=== PATIENT | female | born 1955 | race Caucasian/White ===

== ENCOUNTER 2018-05-13 15:08 | Outpatient (CLI) | payer BC ==
--- NOTE | 2018-05-13 15:45 | MMO ---
Bilateral MAMMO Bilat Screen [facility]. CLINICAL HISTORY: Patient is 62 years old and is seen for screening. The patient has no family history of breast cancer. The patient has no personal history of cancer. VIEWS: The views performed were: bilateral craniocaudal with tomosynthesis and bilateral mediolateral oblique with tomosynthesis. FILMS COMPARED: The present examination has been compared to prior imaging studies performed at [facility] on 06/20/1999, 06/21/2003, 02/20/2011, 04/08/2013 and 04/15/2014. MAMMOGRAM FINDINGS: There are scattered fibroglandular densities. There are stable benign appearing calcifications seen in both breasts. There are no suspicious masses, suspicious calcifications, or new areas of architectural distortion. IMPRESSION: THERE IS NO MAMMOGRAPHIC EVIDENCE OF MALIGNANCY. A ROUTINE FOLLOW-UP MAMMOGRAM IN 1 YEAR IS RECOMMENDED. THE RESULTS OF THIS EXAM WERE SENT TO THE PATIENT. ACR BI-RADS Category 2 - Benign finding MAMMOGRAPHY NOTE: 1. A negative mammogram report should not delay a biopsy if a dominant of clinically suspicious mass is present. 2. Approximately 10% to 15% of breast cancers are not detected by mammography. 3. Adenosis and dense breasts may obscure an underlying neoplasm.
--- NOTE | 2018-05-13 16:54 | BD ---
Exam: DEXA Bone Density 05/13/18 HISTORY: Age-related osteoporosis. DEXA bone scan is performed using hologic bone mineral density unit. FINDINGS: Lumbar Spine: BMD (g/cm2) T-Score: Z-Score: L1 1.1 1.0 2.3 L2 1.04 0.1 1.6 L3 1.23 1.3 2.9 L4 1.13 0.7 2.3 L1-L4 1.13 0.7 2.3 Findings compatible with normal bone mineral density. Left hip: Femoral neck: 0.83 -0.2 1.2 Total Femur: 0.99 0.4 1.4 Findings compatible with normal bone mineral density. Impression: Normal bone mineral density. The patient does not have an increased risk of osteoporotic fractures. POS: YOAN
== END 2018-05-13 15:09 | disposition home or self-care (01) ==
LOC: BICMAMMO 15:08
PROVIDERS: ATTEND Specialist
DX: Z12.31 Encounter for screening mammogram for malignant neoplasm of breast (principal); M85.80 Other specified disorders of bone density and structure, unspecified site
CPT/HCPCS: 77063; 77067; 77080

== ENCOUNTER 2018-10-26 16:13 | Outpatient (CLI) | payer BC ==
--- NOTE | 2018-10-26 16:28 | RAD ---
XR Knee Lt 4 View STANDARD HISTORY: Left knee pain FINDINGS: No fracture or dislocation is identified.
== END 2018-10-26 16:14 | disposition home or self-care (01) ==
LOC: BICRAD 16:13
PROVIDERS: ATTEND Specialist
DX: M25.562 Pain in left knee (principal)

== ENCOUNTER 2020-07-13 08:25 | Outpatient (CLI) | payer BC | END 2020-07-13 08:26 | disposition home or self-care (01) | LOC: BICMAMMO 08:25 | PROVIDERS: ATTEND Specialist | DX: Z12.31 Encounter for screening mammogram for malignant neoplasm of breast (principal); M81.0 Age-related osteoporosis without current pathological fracture | CPT/HCPCS: 77063; 77067; 77080 ==

== ENCOUNTER 2020-10-04 15:31 | Outpatient (CLI) | payer BC | END 2020-10-04 15:32 | disposition home or self-care (01) | LOC: BICMRI 15:31 | PROVIDERS: ATTEND Nurse Practitioner Family | DX: M25.561 Pain in right knee (principal); S83.241A Other tear of medial meniscus, current injury, right knee, initial encounter ==